=== PATIENT | female | born 1975 | race African-American/Black ===

== ENCOUNTER 2017-05-05 16:09 | Inpatient (IN) ==
[2017-05-05] MEDS ORDERED: DINOPROSTONE VAG GEL 10 MG SYRINGE VAG ONE ×2 (16:20→16:48)
[2017-05-05] MEDS ORDERED: LACTATED RINGERS 1,000 ML IV ONE (16:44)
[2017-05-05] MEDS ORDERED: BUTORPHANOL 1 MG/ML VIAL IV PRN (16:44)
[2017-05-05] MEDS ORDERED: ONDANSETRON 4 MG/2 ML VIAL IV PRN (16:44)
[2017-05-05] MEDS ORDERED: MEPERIDINE 50 MG/1 ML VIAL IM PRN (16:44)
[2017-05-05] MEDS: LACTATED RINGERS 1,000 ML IV SCH (16:45)
[2017-05-05 17:03] LABS: Basophils % 0.3 % (0.0-0.8); Eosinophils # 0.1 10*3/uL (0.0-0.87); Eosinophils % 0.7 % (0.00-10.9); Hematocrit 27.5 VOL% (35.7-47.0); Hemoglobin 8.3 GM/DL (12.0-16.0); Immature Granulocytes % 0.6 %; Immature Granulocytes Absolute 0.04 #; Lymphocytes # 1.6 10*3/uL (1.4-4.0); Lymphocytes % 23.4 % (21.3-54.2); Mean Corpuscular HGB Conc 30.2 GM/DL (32-36); Mean Corpuscular Hemoglobin 21 PG (27-34); Mean Corpuscular Volume 70.9 FL (87-102); Mean Platelet Volume 12.4 FL (9.6-12.0); Monocytes # 0.7 10*3/uL (0.11-0.8); Monocytes % 10.6 % (1.7-12.7); Neutrophils # 4.4 10*3/uL (1.4-7.4); Neutrophils % 64.4 % (38.7-73.9); Platelet Count 224 T/CUMM (130-400); Red Blood Count 3.88 MC/CUMM (3.8-5.5); Red Cell Distribution Width 17.5 % (9.3-17.3); White Blood Count 6.9 T/CUMM (4-12)
[2017-05-05 17:29] LABS: Albumin 2.6 G/DL (3.4-5.0); Bilirubin,Total 0.4 MG/DL (0.2-1.0); Calcium 8.5 MG/DL (8.5-10.1); Osmolality,Calculated 269.7 MOS/KG (273-304); Potassium 4.1 MMOL/L (3.5-5.1); Total Protein 6.6 G/DL (6.4-8.3); Uric Acid 2.9 MG/DL (2.6-6.0)
[2017-05-05] MEDS ORDERED: ePHEDrine 50 MG/ML AMP IV PRN (20:16)
[2017-05-05] MEDS ORDERED: hydrOXYzine HCL 25 MG/1 ML VIAL IM PRN (20:16)
[2017-05-05] MEDS ORDERED: fentaNYL 2 MCG/ROPIV 0.2% EPID 150 ML EPIDURAL SCH (20:16)
[2017-05-05] MEDS ORDERED: CITRIC ACID/SODIUM CITRATE 30 ML UDCUP PO ONE (20:16)
[2017-05-05] MEDS ORDERED: PROMETHAZINE 25 MG/1 ML VIAL IM ONE (20:16)
[2017-05-05] MEDS ORDERED: diphenhydrAMINE 50 MG/1 ML VIAL IV PRN (20:16)
[2017-05-05] MEDS ORDERED: FAMOTIDINE 20 MG/2 ML VIAL IV ONE (20:16)
[2017-05-06] MEDS: LACTATED RINGERS 1,000 ML IV SCH (00:21)
[2017-05-06] MEDS ORDERED: OXYTOCIN/LR 20 UNIT/1,000 ML BAG IV SCH (02:00)
[2017-05-06] MEDS ORDERED: miSOPROStol 200 MCG TABLET ONE (13:08)
[2017-05-06] MEDS ORDERED: METHYLERGONOVINE 0.2 MG/1 ML AMP ONE (13:09)
[2017-05-06] MEDS ORDERED: MEPERIDINE 50 MG/1 ML VIAL IV ONE (13:30)
[2017-05-06] MEDS ORDERED: HYDROCORTISONE 2.5% RECTAL CREAM 30 GM TUBE TOP PRN (14:05)
[2017-05-06] MEDS ORDERED: RHO(D) IMMUNE GLOBULIN 300 MCG SYRINGE IM ONE (14:05)
[2017-05-06] MEDS ORDERED: BISACODYL 10 MG SUPP RECTAL PRN (14:05)
[2017-05-06] MEDS ORDERED: ONDANSETRON 4 MG/2 ML VIAL IV PRN (14:05)
[2017-05-06] MEDS ORDERED: LANOLIN 50% CREAM 0.3 OZ TUBE TOP PRN (14:05)
[2017-05-06] MEDS ORDERED: oxyCODONE/ACETAMINOPHEN 5-325 MG TABLET PO PRN ×2 (14:05)
[2017-05-06] MEDS ORDERED: DIPH/TET/ACEL PERT BOOSTER VACCINE 0.5 ML VIAL IM ONE (14:05)
[2017-05-06] MEDS ORDERED: ACETAMINOPHEN 325 MG TABLET PO PRN (14:05)
[2017-05-06] MEDS ORDERED: WITCH HAZEL PADS 100/JAR TOP PRN (14:05)
[2017-05-06] MEDS ORDERED: MEASLES/MUMPS/RUBELLA VACCINE 0.5 ML VIAL SUBCUT ONE (14:05)
[2017-05-06] MEDS ORDERED: BENZOCAINE 20%/MENTHOL 0.5% SPRAY 56 GM CAN TOP PRN (14:05)
[2017-05-06] MEDS ORDERED: OXYTOCIN/LR 20 UNIT/1,000 ML BAG IV ONE (14:05)
[2017-05-06 14:15] LABS: Cord Arterial Blood HCO3 25.7 MMOL/L
[2017-05-06] MEDS ORDERED: LIDOCAINE 1% 20 ML VIAL INFILTRAT ONE (14:52)
[2017-05-06] MEDS: IBUPROFEN 800 MG TABLET PO PRN (17:07)
[2017-05-06] MEDS: DOCUSATE SODIUM 100 MG CAPSULE PO SCH (21:41)
[2017-05-07] MEDS: IBUPROFEN 800 MG TABLET PO PRN ×2 (04:27→16:26)
[2017-05-07 06:21] LABS: Basophils % 0.3 % (0.0-0.8); Eosinophils # 0.1 10*3/uL (0.0-0.87); Eosinophils % 0.5 % (0.00-10.9); Hematocrit 26.2 VOL% (35.7-47.0); Hemoglobin 8.1 GM/DL (12.0-16.0); Immature Granulocytes % 0.5 %; Immature Granulocytes Absolute 0.08 #; Lymphocytes # 2.2 10*3/uL (1.4-4.0); Lymphocytes % 14.4 % (21.3-54.2); Mean Corpuscular HGB Conc 30.9 GM/DL (32-36); Mean Corpuscular Hemoglobin 22 PG (27-34); Mean Corpuscular Volume 69.5 FL (87-102); Monocytes # 1.1 10*3/uL (0.11-0.8); Monocytes % 7.1 % (1.7-12.7); NRBC # 0.02 10*3/uL; Neutrophils # 11.7 10*3/uL (1.4-7.4); Neutrophils % 77.2 % (38.7-73.9); Platelet Count 174 T/CUMM (130-400); Red Blood Count 3.77 MC/CUMM (3.8-5.5); Red Cell Distribution Width 17.5 % (9.3-17.3); White Blood Count 15.1 T/CUMM (4-12)
[2017-05-07] MEDS: DOCUSATE SODIUM 100 MG CAPSULE PO SCH ×2 (10:45→21:13)
[2017-05-07] MEDS ORDERED: FERROUS SULFATE 325 MG TABLET PO SCH (21:00)
[2017-05-08] MEDS: IBUPROFEN 800 MG TABLET PO PRN (01:50)
[2017-05-08 08:04] VITALS: BP 117/73
== END 2017-05-08 13:20 | disposition home or self-care (01) | DRG 775 ==
LOC: N.LDOUT 16:09 → N.LD 16:10 → N.OB 05-06 16:59
PROVIDERS: ADMIT Obstetrics & Gynecology; ATTEND Obstetrics & Gynecology